=== PATIENT | male | born 1965 | race African-American/Black ===

== ENCOUNTER 2019-04-13 08:06 | Emergency (ER) | payer MEDICARE, MEDICAID ==
[~2019-04-13] VITALS: Ht 175.3 cm; Wt 87.0 kg
[~2019-04-13 08:06] MED LIST: BENA40TA66 PO; HALO100A IM
[2019-04-13] MEDS ORDERED: METHYLPREDNISOLONE SOD SUCC 125 MG/2 ML VIAL IV ONE (08:30)
[2019-04-13] MEDS ORDERED: DIPHENHYDRAMINE 50MG/ML VIAL IV ONE (08:30)
[2019-04-13] MEDS ORDERED: FAMOTIDINE 20MG/2ML VIAL IV ONE (08:30)
[2019-04-13] MEDS ORDERED: ACETAMINOPHEN WITH CODEINE 300/30MG TABLET PO ONE (11:30)
[2019-04-13 11:48] VITALS: BP 161/75
== END 2019-04-13 11:51 | disposition home or self-care (01) ==
LOC: ER 08:06
DX: T78.40XA Allergy, unspecified, initial encounter (principal); X58.XXXA Exposure to other specified factors, initial encounter
CPT/HCPCS: 96374; 96375; 99283; J1200; J2930; J3490

== ENCOUNTER 2019-04-21 15:53 | Emergency (ER) | payer MEDICARE, MEDICAID ==
[~2019-04-21] VITALS: Ht 170.2 cm; Wt 72.0 kg
[2019-04-21 17:30] VITALS: BP 182/97
[2019-04-21] MEDS ORDERED: DIPHENHYDRAMINE 50MG/ML VIAL IM ONE (18:15)
[2019-04-21] MEDS ORDERED: HYDROCODONE/ACETAMINOPHEN 5/325MG TABLET PO ONE (20:15)
[2019-04-21] MEDS ORDERED: KETOROLAC 60MG/2ML VIAL IM ONE (20:15)
== END 2019-04-21 21:51 | disposition home or self-care (01) ==
LOC: ER 15:53
DX: T49.4X1A Poisoning by keratolytics, keratoplastics, and other hair treatment drugs and preparations, accidental (unintentional), initial encounter (principal); L23.5 Allergic contact dermatitis due to other chemical products; Y92.018 Other place in single-family (private) house as the place of occurrence of the external cause; R03.0 Elevated blood-pressure reading, without diagnosis of hypertension
CPT/HCPCS: 70490; 96372; 99284; J1200; J1885

== ENCOUNTER 2019-04-24 12:20 | Emergency (ER) | payer MEDICARE, MEDICAID ==
[~2019-04-24] VITALS: Ht 170.2 cm; Wt 79.0 kg
[2019-04-24] MEDS ORDERED: LORAZEPAM 2MG/ML CPJ IM STA (15:10)
[2019-04-24] MEDS ORDERED: CLONIDINE 0.2MG TABLET PO ONE (15:15)
[2019-04-24] MEDS ORDERED: HALOPERIDOL 5MG TABLET PO ONE (15:30)
[2019-04-24 16:26] LABS: HEMATOCRIT. 39.1 % (42.0-52.0); HEMOGLOBIN. 12.3 g/dL (14.0-18.0); MEAN CORPUSCULAR HEMOGLOBIN 23.2 pg (28.0-32.0); MEAN CORPUSCULAR VOLUME 73.7 fL (80.0-94.0); MEAN PLATELET VOLUME 8.8 fl (7.4-10.4); PLATELET 144 x1000/uL (130-400); RED CELL DISTRIBUTION WIDTH 16.5 % (11.6-14.6)
[2019-04-24 16:30] LABS: CHLORIDE 106 mEq/L (98-107)
[2019-04-24 16:33] LABS: ETHANOL BLOOD < 10 mg/dL
[2019-04-24 17:39] LABS: PLATELET ESTIMATE NORMAL
[2019-04-24 22:02] LABS: CLARITY URINE CLEAR (CLEAR); COLOR URINE YELLOW (YELLOW); KETONES URINE 1+ (NEGATIVE); LEUKOCYTE ESTERASE URINE NEGATIVE (NEGATIVE); NITRITE URINE NEGATIVE (NEGATIVE); OCCULT BLOOD URINE NEGATIVE (NEGATIVE); PROTEIN URINE NEGATIVE (NEGATIVE); SPECIFIC GRAVITY URINE 1.012 (1.005-1.030)
[2019-04-24 22:13] LABS: *BARBITURATES SCREEN URINE NEGATIVE (NEGATIVE)
[2019-04-24 22:14] LABS: *AMPHETAMINES SCREEN URINE NEGATIVE (NEGATIVE); *BENZODIAZEPINES SCREEN URINE NEGATIVE (NEGATIVE); *COCAINE SCREEN URINE NEGATIVE (NEGATIVE); METHADONE URINE SCREEN NEGATIVE (NEGATIVE); OPIATES URINE SCREEN PRESUMTIVE POSITIVE (NEGATIVE)
[2019-04-24 22:15] LABS: CANNABINOID URINE SCREEN PRESUMTIVE POSITIVE (NEGATIVE); PHENCYCLIDINE URINE SCREEN NEGATIVE (NEGATIVE)
[2019-04-25 04:00] VITALS: BP 132/80
== END 2019-04-25 05:03 | disposition left against medical advice (07) ==
LOC: ER 12:20
DX: R45.6 Violent behavior (principal); L02.12 Furuncle of neck; I10 Essential (primary) hypertension; F20.0 Paranoid schizophrenia; F17.200 Nicotine dependence, unspecified, uncomplicated; Z88.6 Allergy status to analgesic agent; Z79.899 Other long term (current) drug therapy; Z86.2 Personal history of diseases of the blood and blood-forming organs and certain disorders involving the immune mechanism
CPT/HCPCS: 36415; 80053; 80305; 80307; 80320; 80329; 81003; 85025; 96372; 99284; J2060; 99283; G0480

== ENCOUNTER 2019-05-09 21:55 | Emergency (ER) | payer MEDICARE, MEDICAID ==
[~2019-05-09] VITALS: Ht 170.2 cm; Wt 78.0 kg
[2019-05-09 22:05] VITALS: BP 155/90
== END 2019-05-09 23:28 | disposition left against medical advice (07) ==
LOC: ER 21:55
DX: F23 Brief psychotic disorder (principal); Z53.21 Procedure and treatment not carried out due to patient leaving prior to being seen by health care provider
CPT/HCPCS: 99283

== ENCOUNTER 2019-05-10 00:36 | Emergency (ER) | payer MEDICARE, MEDICAID ==
[~2019-05-10] VITALS: Ht 170.2 cm; Wt 77.0 kg
[2019-05-10 00:49] VITALS: BP 191/102
== END 2019-05-10 05:35 | disposition left against medical advice (07) ==
LOC: ER 00:36
DX: R07.89 Other chest pain (principal)
CPT/HCPCS: 99281

== ENCOUNTER 2019-08-30 15:15 | Emergency (ER) | payer MEDICARE, MEDICAID | END 2019-08-30 16:25 | disposition left against medical advice (07) | LOC: ER 15:15 | DX: Z53.21 Procedure and treatment not carried out due to patient leaving prior to being seen by health care provider (principal) ==

== ENCOUNTER 2019-09-02 14:07 | Emergency (ER) | payer MEDICARE, MEDICAID ==
[~2019-09-02] VITALS: Ht 337.8 cm; Wt 86.0 kg
[2019-09-02 14:25] VITALS: BP 139/106
[2019-09-02] MEDS ORDERED: TRAMADOL 50MG TABLET PO ONE (15:15)
== END 2019-09-02 16:26 | disposition home or self-care (01) ==
LOC: ER 14:07
DX: S89.82XA Other specified injuries of left lower leg, initial encounter (principal); D57.1 Sickle-cell disease without crisis; Z86.711 Personal history of pulmonary embolism; Z79.01 Long term (current) use of anticoagulants; Z88.6 Allergy status to analgesic agent; W01.0XXA Fall on same level from slipping, tripping and stumbling without subsequent striking against object, initial encounter; Y93.89 Activity, other specified; Y92.018 Other place in single-family (private) house as the place of occurrence of the external cause
CPT/HCPCS: 29505; 73562; 99283

== ENCOUNTER 2019-09-29 18:06 | Emergency (ER) | payer MEDICARE, MEDICAID ==
[~2019-09-29] VITALS: Ht 170.2 cm; Wt 84.2 kg
[2019-09-29 18:13] VITALS: BP 145/103
[2019-09-29] MEDS ORDERED: ACETAMINOPHEN 325MG TABLET PO ONE (18:30)
== END 2019-09-29 19:18 | disposition home or self-care (01) ==
LOC: ER 18:06
DX: I10 Essential (primary) hypertension (principal); M79.601 Pain in right arm
CPT/HCPCS: 93005; 99283

== ENCOUNTER 2019-10-25 10:47 | Emergency (ER) | payer MEDICAID, MEDICARE ==
[~2019-10-25] VITALS: Ht 165.1 cm; Wt 78.0 kg
[2019-10-25 11:07] VITALS: BP 153/86
== END 2019-10-25 11:18 | disposition left against medical advice (07) ==
LOC: ER 10:47
DX: R42 Dizziness and giddiness (principal); K62.5 Hemorrhage of anus and rectum
CPT/HCPCS: 99281

== ENCOUNTER 2019-11-10 18:18 | Inpatient (IN) | payer MEDICARE, MEDICAID ==
[~2019-11-10] VITALS: Ht 177.8 cm; Wt 83.9 kg
[2019-11-10] MEDS ORDERED: ACETAMINOPHEN 325MG TABLET PO ONE (19:45)
[2019-11-10] MEDS ORDERED: SODIUM CHLORIDE 0.9% 1000ML BAG (SEPSIS BOLUS) IV ONE (21:15)
[2019-11-10] MEDS ORDERED: CEFTRIAXONE 1 G PREMIX 50 ML IV ONE (21:15)
[2019-11-10 21:25] LABS: HEMATOCRIT. 37.9 % (42.0-52.0); HEMOGLOBIN. 12.6 g/dL (14.0-18.0); MEAN CORPUSCULAR HEMOGLOBIN 23.8 pg (28.0-32.0); MEAN CORPUSCULAR VOLUME 71.5 fL (80.0-94.0); MEAN PLATELET VOLUME 8.4 fl (7.4-10.4); PLATELET 202 x1000/uL (130-400); RED BLOOD CELL COUNT 5.29 mill/uL (4.7-6.1); RED CELL DISTRIBUTION WIDTH 16.3 % (11.6-14.6)
[2019-11-10 21:28] LABS: CHLORIDE 104 mEq/L (98-107)
[2019-11-10 21:30] LABS: PROTHROMBIN TIME 10.7 sec (9.6-11.0)
[2019-11-10 21:32] LABS: ETHANOL BLOOD < 10 mg/dL
[2019-11-10 21:36] LABS: CREATINE KINASE 151 IU/L (39-308)
[2019-11-10 22:29] LABS: PLATELET ESTIMATE NORMAL
[2019-11-10] MEDS ORDERED: AMLODIPINE 10MG TABLET PO NR (22:30)
[2019-11-10] MEDS ORDERED: ACETAMINOPHEN 325MG TABLET PO PRN (22:30)
[2019-11-10] MEDS ORDERED: BENZONATATE 100MG CAPSULE PO PRN (22:30)
[2019-11-10] MEDS ORDERED: ONDANSETRON HCL 4MG/2ML INJ IV PRN (22:30)
[2019-11-11 08:30] VITALS: BP 153/95
[2019-11-11 09:00] VITALS: BP 154/90
[2019-11-11] MEDS ORDERED: ENOXAPARIN 40MG/0.4ML SYR SUBCUT SCH (09:00)
[2019-11-11] MEDS: AZITHROMYCIN 500 MG TABLET PO SCH (09:32)
[2019-11-11] MEDS: AMLODIPINE 10MG TABLET PO SCH (09:41)
[2019-11-11] MEDS ORDERED: HYDROCODONE/ACETAMINOPHEN 10/325MG TABLET PO PRN (10:15)
[2019-11-11] MEDS: MORPHINE SULFATE 2 MG/ML CPJ (NOT FOR IM USE) IV PRN ×3 (10:31→19:50)
[2019-11-11 12:00] VITALS: BP 135/79
[2019-11-11] MEDS ORDERED: ENOXAPARIN 40MG/0.4ML SYR SUBCUT NR (14:00)
[2019-11-11] MEDS: CEFTRIAXONE 1 G PREMIX 50 ML IV SCH (14:58)
[2019-11-11] MEDS ORDERED: BENZ1TAB7 MT (15:47)
[2019-11-11 16:00] VITALS: BP 146/88
[2019-11-11 16:09] LABS: *BARBITURATES SCREEN URINE NEGATIVE (NEGATIVE); *BENZODIAZEPINES SCREEN URINE NEGATIVE (NEGATIVE); *COCAINE SCREEN URINE PRESUMTIVE POSITIVE (NEGATIVE)
[2019-11-11 16:10] LABS: *AMPHETAMINES SCREEN URINE PRESUMTIVE POSITIVE (NEGATIVE); CANNABINOID URINE SCREEN PRESUMTIVE POSITIVE (NEGATIVE); METHADONE URINE SCREEN NEGATIVE (NEGATIVE); OPIATES URINE SCREEN NEGATIVE (NEGATIVE); PHENCYCLIDINE URINE SCREEN NEGATIVE (NEGATIVE)
[2019-11-11] MEDS: ALBUTEROL 6.7GM HFA INHALER ORI SCH (18:00)
[2019-11-11 20:00] VITALS: BP 164/90
[2019-11-11] MEDS: ENOXAPARIN 80MG/0.8ML SYR SUBCUT SCH (20:10)
[2019-11-11] MEDS ORDERED: HALOPERIDOL DECANOATE 100 MG IM SCH (20:15)
[2019-11-11] MEDS ORDERED: QUETIAPINE FUMARATE 50MG TABLET PO SCH (21:00)
[2019-11-11] MEDS ORDERED: CEFTRIAXONE 1 G PREMIX 50 ML IV SCH (21:00)
[2019-11-11] MEDS: BENZTROPINE MESYLATE 1MG TABLET PO SCH (21:18)
[2019-11-11] MEDS: HALOPERIDOL LACTATE 5MG/ML VIAL IM PRN (22:04)
[2019-11-12] VITALS: BP 142/84
[2019-11-12] MEDS: ALBUTEROL 6.7GM HFA INHALER ORI SCH
[2019-11-12 04:50] VITALS: BP 125/86
[2019-11-12] MEDS: MORPHINE SULFATE 2 MG/ML CPJ (NOT FOR IM USE) IV PRN ×2 (04:57→09:07)
[2019-11-12] MEDS: ALBUTEROL (0.083%) 2.5MG/3ML NEB HHN SCH ×2 (06:00→09:51)
[2019-11-12 07:52] LABS: CHLORIDE 105 mEq/L (98-107)
[2019-11-12 07:53] LABS: BASOPHILS % 0.8 % (0.0-2.0); HEMATOCRIT. 36.6 % (42.0-52.0); LYMPHOCYTES % 27.4 % (20.0-50.0); MEAN CORPUSCULAR HEMOGLOBIN 23.9 pg (28.0-32.0); MEAN CORPUSCULAR VOLUME 72.7 fL (80.0-94.0); MEAN PLATELET VOLUME 8.8 fl (7.4-10.4); MONOCYTES % 13.4 % (2.0-8.0); NEUTROPHILS % 53.4 % (40.0-76.0); PLATELET 188 x1000/uL (130-400); RED BLOOD CELL COUNT 5.04 mill/uL (4.7-6.1); RED CELL DISTRIBUTION WIDTH 16.4 % (11.6-14.6)
[2019-11-12 08:00] VITALS: BP 136/85
[2019-11-12] MEDS: AZITHROMYCIN 500 MG TABLET PO SCH (09:06)
[2019-11-12] MEDS: BENZTROPINE MESYLATE 1MG TABLET PO SCH (09:06)
[2019-11-12] MEDS: HALOPERIDOL LACTATE 5MG/ML VIAL IM PRN (09:06)
[2019-11-12] MEDS: ENOXAPARIN 80MG/0.8ML SYR SUBCUT SCH (09:06)
[2019-11-12] MEDS: AMLODIPINE 10MG TABLET PO SCH (09:06)
[2019-11-12 11:43] VITALS: BP 129/92
[2019-11-12 12:00] VITALS: BP 129/92
[2019-11-12] MEDS ORDERED: ALBU18HF2 IH (12:23)
[2019-11-12] MEDS ORDERED: HYDR-4009 MT ×2 (12:23→12:31)
[2019-11-12] MEDS: CEFTRIAXONE 1 G PREMIX 50 ML IV SCH (13:21)
[2019-11-12 13:28] VITALS: BP 127/92
== END 2019-11-12 15:20 | disposition home or self-care (01) | DRG 871 ==
LOC: ER 18:18 → 7WST 23:41 → ENRESERV 11-11 07:49 → CANRESERV 11-11 07:49 → ENRESERV 11-11 07:57 → 6WST 11-12 02:09
PROVIDERS: ADMIT Internal Medicine; ATTEND Internal Medicine
DX: A41.89 Other specified sepsis (principal); J96.01 Acute respiratory failure with hypoxia; D68.59 Other primary thrombophilia; J68.0 Bronchitis and pneumonitis due to chemicals, gases, fumes and vapors; Z20.828 Contact with and (suspected) exposure to other viral communicable diseases; B34.9 Viral infection, unspecified; D57.1 Sickle-cell disease without crisis; D72.810 Lymphocytopenia; I10 Essential (primary) hypertension; F15.10 Other stimulant abuse, uncomplicated; F14.10 Cocaine abuse, uncomplicated; F12.10 Cannabis abuse, uncomplicated; T59.891A Toxic effect of other specified gases, fumes and vapors, accidental (unintentional), initial encounter; Y92.89 Other specified places as the place of occurrence of the external cause; Z82.49 Family history of ischemic heart disease and other diseases of the circulatory system; Z83.2 Family history of diseases of the blood and blood-forming organs and certain disorders involving the immune mechanism; Z86.711 Personal history of pulmonary embolism; Z88.6 Allergy status to analgesic agent; Z79.899 Other long term (current) drug therapy
CPT/HCPCS: 36415; 71045; 80048; 80053; 80305; 80320; 82550; 82728; 83605; 83615; 83880; 84145; 84484; 85025; 85379; 85651; 86140; 93005; 93970; 99285; J0696; J1630; J1650; J2270; J7030; G0480; U0003-CS

== ENCOUNTER 2020-06-14 01:35 | Emergency (ER) | payer OTHER, MEDICAID ==
[~2020-06-14] VITALS: Ht 170.2 cm; Wt 84.0 kg
[~2020-06-14 01:35] MED LIST changes: +ALBU18HF2 IH; +BENZ1TAB7 MT; +HYDR-4009 MT
[2020-06-14 01:47] VITALS: BP 170/84
[2020-06-14] MEDS ORDERED: ACETAMINOPHEN 500MG TABLET PO ONE (02:30)
== END 2020-06-14 04:33 | disposition home or self-care (01) ==
LOC: ER 01:35
DX: M79.672 Pain in left foot (principal); M79.671 Pain in right foot; Z88.6 Allergy status to analgesic agent; F12.10 Cannabis abuse, uncomplicated
CPT/HCPCS: 73610; 73630; 99284